=== PATIENT | male | born 1995 | race Caucasian/White ===

== ENCOUNTER 2017-05-07 22:45 | Emergency (ER) | payer OTHER | END 2017-05-08 00:30 | disposition home or self-care (01) | LOC: D.ER 22:45 | DX: S05.02XA Injury of conjunctiva and corneal abrasion without foreign body, left eye, initial encounter (principal); W39.XXXA Discharge of firework, initial encounter; T26.32XA Burns of other specified parts of left eye and adnexa, initial encounter ==